=== PATIENT | female | born 1965 | race Caucasian/White ===

== ENCOUNTER → 2016-07-29 12:30 | Emergency (ER) | payer OTHER ==
[~2016-07-29 12:30] MED LIST: ASMANEX; ASPIRIN; COGENTIN PO; COMBIVENT INH14.7 GM; FORADIL12 MCG; INDERAL LA PO; LEVAQUIN PO; LIPITOR PO; LITHIUM; MULTI-VITAMIN1 TAB; NAPROXEN PO; NICOTINE T1 PATCH .2 TOP; PREDNISONE PO; PROTONIX; RHINOCORT AQUA8.6 GM; SEROQUEL; SYNTHROID PO; TEMAZEPAM PO; THORAZINE; THORAZINE PO; TOPAMAX; TYLENOL #3 PO; VALTREX PO; VICODIN 5/1 TAB 5/50 PO; ZOLOFT PO
== END | disposition left against medical advice (07) ==
LOC: CED 12:30
DX: Z53.21 Procedure and treatment not carried out due to patient leaving prior to being seen by health care provider (principal)

== ENCOUNTER 2016-08-12 21:01 | Emergency (ER) | payer OTHER | END 2016-08-12 21:05 | disposition left against medical advice (07) | LOC: CED 21:01 | DX: Z53.21 Procedure and treatment not carried out due to patient leaving prior to being seen by health care provider (principal) ==

== ENCOUNTER → 2016-09-12 23:00 | Emergency (ER) | payer OTHER | END | disposition left against medical advice (07) | LOC: CED 23:00 | DX: Z53.21 Procedure and treatment not carried out due to patient leaving prior to being seen by health care provider (principal) ==

== ENCOUNTER 2016-09-13 01:09 | Emergency (ER) | payer OTHER ==
--- NOTE | ~2016-09-13 | CR253 ---
[facility] A Service of [facility] & [facility] RADIOLOGY TEXT RESULTS PATIENT: JOANNA CUEVAS LOCATION: [facility] : 63 UNIT #: [id number] AGE: [address]: Jose Pulido MD SEX: F ORDER DR: [id number] [facility] [address] [place], [place] [address] [id number] E MR#: [id number] Acc #: [id number] NAME: JOANNA CUEVAS : 1965 SEX: F STUDY DATE/TIME: 09/13/2016 00:50 UNIT: [facility] ROOM: STUDY DESCRIPTION: CR Tibia and Fibula 2 Views Rt Attending Physician: Jose Pulido M.D. Referring Physician: Ryan Lang M.D. Ordering Physician: Jose Pulido M.D. Primary Care Physician: Ryan Lang M.D. MEDICAL IMAGING REPORT This report is preliminary unless electronic signature is present EXAM Right tib-fib 09/13/2016 at 00:50 INDICATION Patient had a fall 3 weeks ago. Persistent pain and numbness in the lateral right lower leg. FINDINGS AP and lateral views of the right lower leg were obtained. No acute fracture or malalignment is seen. The soft tissues are within normal limits. IMPRESSION Negative right lower leg. Dictated by... Cortes Orantes Jr., M.D. THIS IS AN ELECTRONICALLY VERIFIED REPORT Cortes Orantes Jr., M.D. at 09/16/2016 7:22 AM MARLENI/dorothy TD: 09/13/2016 06:55 JOB #: [id number] MEDICAL IMAGING REPORT Page 1 of 1 COPY
--- NOTE | ~2016-09-13 | CR170 ---
[facility] A Service of [facility] & [facility] RADIOLOGY TEXT RESULTS PATIENT: JOANNA CUEVAS LOCATION: [facility] : 63 UNIT #: [id number] AGE: [address]: Jose Pulido MD SEX: F ORDER DR: [id number] [facility] [address] [place], [place] [address] [id number] E MR#: [id number] Acc #: [id number] NAME: JOANNA CUEVAS : 1965 SEX: F STUDY DATE/TIME: 09/13/2016 00:48 UNIT: [facility] ROOM: STUDY DESCRIPTION: CR Knee 2 Views Rt Attending Physician: Jose Pulido M.D. Referring Physician: Ryan Lang M.D. Ordering Physician: Jose Pulido M.D. Primary Care Physician: Ryan Lang M.D. MEDICAL IMAGING REPORT This report is preliminary unless electronic signature is present EXAM Right knee 09/13 at 0048 hours INDICATIONS Pain and numbness in the knee after falling 3 weeks ago. FINDINGS 3 views of the right knee were obtained. There is osteoarthritis, predominately patellofemoral and medial compartments. No fracture or malalignment is seen. There is some benign cyst formation in the central tibial plateau. No joint effusion. IMPRESSION No acute findings. There is osteoarthritis in the patellofemoral and medial compartments. Dictated by... Cortes Orantes Jr., M.D. THIS IS AN ELECTRONICALLY VERIFIED REPORT Cortes Orantes Jr., M.D. at 09/16/2016 7:22 AM MARLENI/argenis TD: 09/13/2016 06:52 JOB #: [id number] MEDICAL IMAGING REPORT Page 1 of 1 COPY
== END 2016-09-13 01:38 | disposition home or self-care (01) ==
LOC: CFTX 01:09
DX: M17.11 Unilateral primary osteoarthritis, right knee (principal); I10 Essential (primary) hypertension; E78.5 Hyperlipidemia, unspecified; J44.9 Chronic obstructive pulmonary disease, unspecified; F25.0 Schizoaffective disorder, bipolar type; G43.909 Migraine, unspecified, not intractable, without status migrainosus; F17.210 Nicotine dependence, cigarettes, uncomplicated; Z98.51 Tubal ligation status; Z98.890 Other specified postprocedural states; Z86.19 Personal history of other infectious and parasitic diseases; Z88.1 Allergy status to other antibiotic agents; Z88.5 Allergy status to narcotic agent; Z88.8 Allergy status to other drugs, medicaments and biological substances; Z79.899 Other long term (current) drug therapy
CPT/HCPCS: 73560; 73590; 99284

== ENCOUNTER → 2016-09-25 | Outpatient (CLI) | payer OTHER ==
--- NOTE | ~2016-09-25 | MR104 ---
[facility] A Service of [facility] RADIOLOGY TEXT RESULTS PATIENT: JOANNA CUEVAS LOCATION: [facility] : 63 UNIT #: [id number] AGE: [address]: Maira Mcdonald SEX: F ORDER DR: [id number] [facility] [address] [place], [place] [address] [id number] O MR#: [id number] Acc #: [id number] NAME: JOANNA CUEVAS : 1965 SEX: F STUDY DATE/TIME: 09/25/2016 16:40 UNIT: [facility] ROOM: STUDY DESCRIPTION: MR Knee Wo Contrast Rt Attending Physician: Maira Mcdonald P.A.-C. Referring Physician: Maira Mcdonald P.A.-C. Ordering Physician: Maira Mcdonald P.A.-C. Primary Care Physician: Ryan Lang M.D. MRI CENTER REPORT This report is preliminary unless electronic signature is present. EXAM MRI of the right knee 09/25/2016 COMPARISON Right knee radiographs 09/13/2016. HISTORY Order states right lower leg pain and swelling. Positive anterior drawer. History sheet states patient fell approximately 1-2 months ago. Knee remains swollen and painful for 1-2 months diffusely. No knee surgery. Involuntary knee and foot jerking. History of thyroid radiation. Thyroidectomy. TECHNIQUE BLADE motion correction sequences were performed. Exam is moderately motion-degraded, nevertheless. FINDINGS There is a minimal effusion without a popliteal cyst. There is patella joselin of with slight patellar tilt. There is chondromalacia patella including grade 4 chondromalacia of the lateral facet and median ridge. There is cartilage attenuation of the femoral trochlea diffusely. Quadriceps and patellar tendons are intact. There is mild inflammation in the superolateral aspect of the infrapatellar fat pad thought to be related to fat pad impingement in the setting of patellofemoral malalignment/mal tracking. Cruciate ligaments are normal. The medial meniscus and MCL are normal. There is minimal medial STS. [facility] A Service of [facility] RADIOLOGY TEXT RESULTS PATIENT: JOANNA CUEVAS LOCATION: [facility] : 63 UNIT #: [id number] AGE: [address]: Maira Mcdonald SEX: F ORDER DR: compartment osteophyte formation. No definite high-grade medial compartment chondromalacia is noted. The lateral meniscus demonstrates no tear. Lateral collateral ligament complex and popliteus tendon are intact. There is a small focus of high-grade chondromalacia of the posterior weightbearing lateral femoral condyle. There is no marrow lesion, fracture, bone contusion, or loose body identified. IMPRESSION 1. Motion-degraded exam, despite motion correction BLADE sequences. 2. Patella joselin and high-grade chondromalacia patella detailed above. Moderate grade femoral trochlear chondromalacia. 3. Mild inflammation superolateral aspect infrapatellar fat pad is thought to be related to fat pad impingement in the setting of patellofemoral malalignment or maltracking. 4. Small effusion. 5. Cruciate ligaments and menisci are within normal limits. 6. Minimal lateral compartment chondromalacia detailed above. 7. No fracture, bone contusion, or loose body identified. Dictated by... Janel Arana M.D. THIS IS AN ELECTRONICALLY VERIFIED REPORT Janel Arana M.D. at 09/27/2016 8:41 AM Da TD: 09/26/2016 14:18 JOB #: [id number] MRI CENTER REPORT Page 1 of 1 COPY
== END | disposition home or self-care (01) ==
LOC: CMRI 15:20
DX: M79.89 Other specified soft tissue disorders (principal); M79.661 Pain in right lower leg; M22.41 Chondromalacia patellae, right knee; M25.462 Effusion, left knee; M70.51 Other bursitis of knee, right knee
CPT/HCPCS: 73721

== ENCOUNTER 2016-09-28 20:02 | Emergency (ER) | payer OTHER ==
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
== END 2016-09-28 22:31 | disposition home or self-care (01) ==
LOC: CFTX 20:02
DX: S16.1XXA Strain of muscle, fascia and tendon at neck level, initial encounter (principal); S39.012A Strain of muscle, fascia and tendon of lower back, initial encounter; S80.11XA Contusion of right lower leg, initial encounter; S00.93XA Contusion of unspecified part of head, initial encounter; I10 Essential (primary) hypertension; E78.5 Hyperlipidemia, unspecified; J44.9 Chronic obstructive pulmonary disease, unspecified; B19.20 Unspecified viral hepatitis C without hepatic coma; F31.9 Bipolar disorder, unspecified; F17.210 Nicotine dependence, cigarettes, uncomplicated; V49.40XA Driver injured in collision with unspecified motor vehicles in traffic accident, initial encounter
CPT/HCPCS: 70450; 72040; 72100; 73590; 96372; 99284; J1885

== ENCOUNTER 2016-09-29 23:28 | Emergency (ER) | payer OTHER ==
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
[2016-09-30 01:02] LABS: POC - CKMB 1.3 ng/mL (0.0-7.9); POC - TROPONIN <0.05 ng/mL (<=0.05)
== END 2016-09-30 02:15 | disposition home or self-care (01) ==
LOC: CED 23:28
PROVIDERS: Emergency Medicine
DX: S13.4XXA Sprain of ligaments of cervical spine, initial encounter (principal); K21.9 Gastro-esophageal reflux disease without esophagitis; F17.200 Nicotine dependence, unspecified, uncomplicated; J44.9 Chronic obstructive pulmonary disease, unspecified; X58.XXXA Exposure to other specified factors, initial encounter; Y92.89 Other specified places as the place of occurrence of the external cause
CPT/HCPCS: 72125; 73030; 82553; 84484; 87040; 99284

== ENCOUNTER 2016-10-06 20:41 | Emergency (ER) | payer OTHER ==
--- NOTE | ~2016-10-06 | CR142 ---
[facility] A Service of [facility] & [facility] RADIOLOGY TEXT RESULTS PATIENT: JOANNA CUEVAS LOCATION: [facility] : 63 UNIT #: [id number] AGE: [address]: Opal Adair APRN SEX: F ORDER DR: [id number] [facility] [address] [place], [place] [address] [id number] E MR#: [id number] Acc #: [id number] NAME: JOANNA CUEVAS : 1965 SEX: F STUDY DATE/TIME: 10/06/2016 21:12 UNIT: [facility] ROOM: STUDY DESCRIPTION: CR Hand Min 3 Views Rt Attending Physician: Opal Adair A.P.R.N. Ordering Physician: Opal Adair A.P.R.N. Primary Care Physician: Ryan Lang M.D. MEDICAL IMAGING REPORT This report is preliminary unless electronic signature is present EXAM Right hand series INDICATION Right hand pain and swelling for the past 2 days. PROCEDURE 3 views of the right hand. COMPARISON None FINDINGS No acute fracture. No dislocation. IMPRESSION No acute findings. Dictated by... Judah Mendoza M.D. THIS IS AN ELECTRONICALLY VERIFIED REPORT Judah Mendoza M.D. at 10/10/2016 7:06 AM Sloan TD: 10/07/2016 08:41 JOB #: [id number] MEDICAL IMAGING REPORT Page 1 of 1 COPY
== END 2016-10-06 22:06 | disposition home or self-care (01) ==
LOC: CFTX 20:41
DX: M79.641 Pain in right hand (principal); J44.9 Chronic obstructive pulmonary disease, unspecified; E78.5 Hyperlipidemia, unspecified; F17.210 Nicotine dependence, cigarettes, uncomplicated; Z88.0 Allergy status to penicillin; Z88.1 Allergy status to other antibiotic agents; Z88.5 Allergy status to narcotic agent
CPT/HCPCS: 29125; 73130; 99283

== ENCOUNTER 2016-11-03 21:28 | Emergency (ER) | payer OTHER | END 2016-11-04 01:16 | disposition left against medical advice (07) | LOC: CED 21:28 | DX: Z53.21 Procedure and treatment not carried out due to patient leaving prior to being seen by health care provider (principal) ==

== ENCOUNTER 2016-11-04 19:56 | Emergency (ER) | payer OTHER ==
[2016-11-04 20:59] LABS: URINE SOURCE CLEAN CATCH
[2016-11-04 21:04] LABS: URINE APPEARANCE CLEAR; URINE BILIRUBIN NEG (NEG); URINE BLOOD NEG (NEG); URINE COLOR YELLOW; URINE GLUCOSE NEG (NEG); URINE KETONE NEG (NEG); URINE LEUKOCYTE ESTERASE TRACE (NEG); URINE NITRATE NEG (NEG); URINE PH 6.5 (5-8); URINE PROTEIN NEG (NEG); URINE SPECIFIC GRAVITY 1.007 (1.003-1.035); URINE UROBILINOGEN 0.2 MG/DL (NEG)
[2016-11-04 21:08] LABS: URBCS1 AUWI 0-2 /[HPF] (0-2); URINE BACTERIA AUWI NEG (NEGATIVE); URINE SQUAMOUS EPITHELIAL CELL NONE SEEN /[HPF]; UWBCS1 AUWI 0-2 (0-5)
[2016-11-04 21:09] LABS: CULTURE INDICATED? NO
[2016-11-04 22:23] LABS: BASOPHIL# 0.1 X10e3 (0-0.3); BASOPHIL% 0.6 % (0-2.5); EOSINOPHIL# 0.2 X10e3 (0-0.7); EOSINOPHIL% 1.3 % (0.0-7.0); HEMATOCRIT 38.6 % (35.0-45.0); HEMOGLOBIN 12.1 gm/dL (12.0-16.0); LYMPHOCYTE# 2.1 X10e3 (1.0-3.5); LYMPHOCYTE% 14.1 % (17.0-45.0); MEAN CELL VOLUME 81.1 FL (83-96); MEAN CORPUSCULAR HEMOGLOBIN 25.3 PG (28-34); MEAN CORPUSCULAR HGB CONC 31.3 g/dL (30-36); MEAN PLATELET VOLUME 8.6 FL (6.5-11.5); MONOCYTE# 1.2 X10e3 (0-1.0); MONOCYTE% 8.5 % (3.0-12.0); NEUTROPHIL% 75.5 % (40-75); PLATELET COUNT 275 X10e3 (140-420); RED BLOOD COUNT 4.76 X10e (3.90-5.30); WHITE BLOOD COUNT 14.6 X10e3 (4.0-10.5)
[2016-11-04 22:25] LABS: DIFF IND NO
[2016-11-04 22:54] LABS: ALBUMIN SERUM 3.6 g/dL (3.5-5.0); BILIRUBIN, DIRECT 0.1 mg/dL (0.0-0.2); BILIRUBIN,INDIRECT 0.4 mg/dL (0.0-0.9); BILIRUBIN,TOTAL 0.5 mg/dL (0.2-2.0); BUN/CREATININE RATIO 4.54; CALCIUM SERUM 9.1 mg/dL (8.4-10.2); CREATININE SERUM 1.1 mg/dL (0.6-1.4); GLOM FILT RATE Estimated 57.7 mL/min (>60); POTASSIUM 3.2 mmol/L (3.5-5.1); PROTEIN TOTAL SERUM 6.9 g/dL (6.0-8.3)
== END 2016-11-04 23:38 | disposition home or self-care (01) ==
LOC: CFTX 19:56 → CED 19:56 → CFTX 21:30
PROVIDERS: Physician Assistant
DX: R30.0 Dysuria (principal); R10.84 Generalized abdominal pain; F17.210 Nicotine dependence, cigarettes, uncomplicated; Z98.51 Tubal ligation status; Z88.1 Allergy status to other antibiotic agents; Z88.5 Allergy status to narcotic agent; Z88.8 Allergy status to other drugs, medicaments and biological substances
CPT/HCPCS: 36415; 80048; 80076; 81003; 83690; 85025; 96361; 96374; 99284; J2405

== ENCOUNTER 2016-11-07 16:58 | Emergency (ER) | payer OTHER ==
[2016-11-07 17:56] LABS: BASOPHIL# 0.1 X10e3 (0-0.3); BASOPHIL% 0.7 % (0-2.5); DIFF IND NO; EOSINOPHIL# 0.1 X10e3 (0-0.7); EOSINOPHIL% 0.6 % (0.0-7.0); HEMATOCRIT 40.9 % (35.0-45.0); LYMPHOCYTE% 15.7 % (17.0-45.0); MEAN CELL VOLUME 81.1 FL (83-96); MEAN CORPUSCULAR HEMOGLOBIN 25.7 PG (28-34); MEAN CORPUSCULAR HGB CONC 31.7 g/dL (30-36); MEAN PLATELET VOLUME 8.6 FL (6.5-11.5); MONOCYTE# 0.9 X10e3 (0-1.0); MONOCYTE% 6.7 % (3.0-12.0); NEUTROPHIL# 9.8 X10e3 (1.5-7.1); NEUTROPHIL% 76.3 % (40-75); PLATELET COUNT 279 X10e3 (140-420); RED BLOOD COUNT 5.05 X10e (3.90-5.30); RED CELL DISTRIBUTION WIDTH 21.4 % (11.0-15.5); WHITE BLOOD COUNT 12.8 X10e3 (4.0-10.5)
[2016-11-07 18:27] LABS: ALKALINE PHOSPHATASE 74 U/L (32-92); ALT (SGPT) 14 U/L (10-40); AST (SGOT) 9 U/L (10-42); BILIRUBIN, DIRECT <0.1 mg/dL (0.0-0.2); BILIRUBIN,INDIRECT 0.2 mg/dL (0.0-0.9); BILIRUBIN,TOTAL 0.3 mg/dL (0.2-2.0); BLOOD UREA NITROGEN 10 mg/dL (9-23); BUN/CREATININE RATIO 8.33; CALCIUM SERUM 9.5 mg/dL (8.4-10.2); CARBON DIOXIDE 22 mmol/L (22-31); CHLORIDE 105 mmol/L (100-111); CREATININE SERUM 1.2 mg/dL (0.6-1.4); GLOM FILT RATE Estimated 51.9 mL/min (>60); GLUCOSE FASTING 105 mg/dL (70-110); LIPASE 16 U/L (22-51); POTASSIUM 3.4 mmol/L (3.5-5.1); PROTEIN TOTAL SERUM 7.4 g/dL (6.0-8.3); SODIUM 138 mmol/L (135-145)
== END 2016-11-07 19:20 | disposition home or self-care (01) ==
LOC: CED 16:58
DX: R19.7 Diarrhea, unspecified (principal); R10.9 Unspecified abdominal pain; K21.9 Gastro-esophageal reflux disease without esophagitis; B19.20 Unspecified viral hepatitis C without hepatic coma; J44.9 Chronic obstructive pulmonary disease, unspecified; F31.9 Bipolar disorder, unspecified; F17.210 Nicotine dependence, cigarettes, uncomplicated; Z98.51 Tubal ligation status; Z88.1 Allergy status to other antibiotic agents; Z88.5 Allergy status to narcotic agent; Z88.8 Allergy status to other drugs, medicaments and biological substances
CPT/HCPCS: 80048; 80076; 83690; 85025; 99284; J2270; J2405

== ENCOUNTER 2016-11-17 16:36 | Emergency (ER) | payer OTHER | END 2016-11-17 18:15 | disposition left against medical advice (07) | LOC: CED 16:36 | DX: Z53.21 Procedure and treatment not carried out due to patient leaving prior to being seen by health care provider (principal) ==

== ENCOUNTER 2016-12-01 23:10 | Emergency (ER) | payer OTHER ==
--- NOTE | ~2016-12-01 | CT71 ---
[facility] A Service [facility] RADIOLOGY TEXT RESULTS PATIENT: JOANNA CUEVAS LOCATION: [facility] : 63 UNIT #: [id number] AGE: [address]: Chris Tavera MD SEX: F ORDER DR: [id number] [address] [place], [place] [address] [id number] E MR#: [id number] Acc #: [id number] NAME: JOANNA CUEVAS : 1965 SEX: F STUDY DATE/TIME: 12/01/2016 23:58 UNIT: [facility] ROOM: STUDY DESCRIPTION: CT Head Wo Contrast Attending Physician: Chris Tavera M.D. Ordering Physician: Chris Tavera M.D. Primary Care Physician: No Primary Care Physician MEDICAL IMAGING REPORT This report is preliminary unless electronic signature is present EXAM CT head. INDICATIONS Stroke-like symptoms. Confusion. Manic. Mental status change. TECHNIQUE CT of the head without contrast. COMPARISON CT head dated 09/28/2016. TECHNIQUE Axial noncontrast images were obtained from the skull base to the vertex. This CT exam was performed with one or more of the following radiation dose reduction techniques: automatic exposure control, adjustment of mA and/or kV according to patient size, and iterative reconstruction. FINDINGS Ventricular size and configuration are normal. There is no evidence of acute infarct or hemorrhage. There are no extraaxial fluid collections. No mass lesion or mass effect is seen. There are no skull fractures. There is a partially exophytic area of hyperostosis off the medial left temporal bone measuring up to 2.1 cm. This has benign features and is unchanged from the prior CT. IMPRESSION Normal noncontrast head CT. [facility] A Service [facility] RADIOLOGY TEXT RESULTS PATIENT: JOANNA CUEVAS LOCATION: [facility] : 63 UNIT #: [id number] AGE: [address]: Chris Tavera MD SEX: F ORDER DR: Dictated by... John P. Eduarda, M.D. THIS IS AN ELECTRONICALLY VERIFIED REPORT John Lerner M.D. at 12/02/2016 10:29 PM KIM/angélica TD: 12/02/2016 11:23 JOB #: [id number] MEDICAL IMAGING REPORT Page 1 of 1 COPY
--- NOTE | ~2016-12-01 | EKG ---
PATIENT: JOANNA CUEVAS UNIT #: [id number] Ventricular Rate: 83 BPM Atrial Rate: 83 BPM P-R Interval: 150 ms QRS Duration: 80 ms Q-T Interval: 404 ms QTC Calculation(Bezet): 474 ms P [place]: 75 degrees Calculated R [place]: 65 degrees Calculated T [place]: 81 degrees Diagnosis Line: Normal sinus rhythm Diagnosis Line: Low voltage QRS Diagnosis Line: Borderline ECG Diagnosis Line: When compared with ECG of 21-AUG-2014 11:49, Diagnosis Line: Nonspecific T wave abnormality now evident in Diagnosis Line: Anterior leads Diagnosis Line: Confirmed by ISI HOLLY MD ([id number]) on Diagnosis Line: 12/02/2016 11:07:50 AM INTERPRETING MD: AVNI CANNON
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
[2016-12-01 23:43] LABS: URINE SOURCE CLEAN CATCH
[2016-12-01 23:48] LABS: BASOPHIL# 0.1 X10e3 (0-0.3); BASOPHIL% 1.1 % (0-2.5); DIFF IND YES; EOSINOPHIL# 0.1 X10e3 (0-0.7); EOSINOPHIL% 1.4 % (0.0-7.0); HEMATOCRIT 40.6 % (35.0-45.0); HEMOGLOBIN 13.1 gm/dL (12.0-16.0); LYMPHOCYTE# 2.6 X10e3 (1.0-3.5); LYMPHOCYTE% 28.4 % (17.0-45.0); MEAN CELL VOLUME 84.8 FL (83-96); MEAN CORPUSCULAR HEMOGLOBIN 27.4 PG (28-34); MEAN CORPUSCULAR HGB CONC 32.3 g/dL (30-36); MEAN PLATELET VOLUME 7.8 FL (6.5-11.5); MONOCYTE# 0.9 X10e3 (0-1.0); MONOCYTE% 9.7 % (3.0-12.0); NEUTROPHIL# 5.5 X10e3 (1.5-7.1); NEUTROPHIL% 59.4 % (40-75); PLATELET COUNT 189 X10e3 (140-420); RED BLOOD COUNT 4.79 X10e (3.90-5.30); RED CELL DISTRIBUTION WIDTH 22.5 % (11.0-15.5); WHITE BLOOD COUNT 9.3 X10e3 (4.0-10.5)
[2016-12-01 23:51] LABS: URINE APPEARANCE CLEAR; URINE BILIRUBIN NEG (NEG); URINE BLOOD NEG (NEG); URINE COLOR YELLOW; URINE GLUCOSE NEG (NEG); URINE KETONE NEG (NEG); URINE LEUKOCYTE ESTERASE 3+ (NEG); URINE NITRATE POS (NEG); URINE PH 5.5 (5-8); URINE PROTEIN NEG (NEG); URINE SPECIFIC GRAVITY 1.008 (1.003-1.035); URINE UROBILINOGEN 0.2 MG/DL (NEG)
[2016-12-01 23:54] LABS: CULTURE INDICATED? YES; URBCS1 AUWI 0-2 /[HPF] (0-2); URINE BACTERIA AUWI 4+ (NEGATIVE); URINE SQUAMOUS EPITHELIAL CELL NONE SEEN /[HPF]; UWBCS1 AUWI 50-100 (0-5)
[2016-12-02] LABS: PARTIAL THROMBOPLASTIN TIME 27.5 SECONDS (23.5-31.3); PROTHROMBIN TIME (PATIENT) 10.5 SECONDS (10.0-11.7)
[2016-12-02 00:06] LABS: ACANTHOCYTES PRESENT; ANISOCYTOSIS MOD; PLATELET ESTIMATE NORMAL (NORMAL); POIKILOCYTOSIS SL; STOMATOCYTE PRESENT
[2016-12-02 00:06] LABS: AMPHETAMINE NEG (NEG); BARBITURATES NEG (NEG); BENZODIAZEPINES NEG (NEG); COCAINE NEG (NEG); MARIJUANA NEG (NEG); OPIATES NEG (NEG); TRICYCLIC ANTIDEPRESSANTS POS (NEG); U METHADONE NEG (NEG)
[2016-12-02 00:10] LABS: ALBUMIN SERUM 3.9 g/dL (3.5-5.0); BILIRUBIN,TOTAL 0.8 mg/dL (0.2-2.0); BUN/CREATININE RATIO 5.71; CALCIUM SERUM 8.7 mg/dL (8.4-10.2); CREATININE SERUM 1.4 mg/dL (0.6-1.4); GLOM FILT RATE Estimated 43.1 mL/min (>60); PROTEIN TOTAL SERUM 6.8 g/dL (6.0-8.3)
[2016-12-02 00:26] LABS: BILIRUBIN, DIRECT 0.1 mg/dL (0.0-0.2); BILIRUBIN,INDIRECT 0.7 mg/dL (0.0-0.9); POTASSIUM 2.9 mmol/L (3.5-5.1)
== END 2016-12-02 01:30 | disposition home or self-care (01) ==
LOC: CED 23:10
PROVIDERS: Emergency Medicine
DX: J18.9 Pneumonia, unspecified organism (principal); N39.0 Urinary tract infection, site not specified; E87.6 Hypokalemia; J44.9 Chronic obstructive pulmonary disease, unspecified; B19.20 Unspecified viral hepatitis C without hepatic coma; F31.9 Bipolar disorder, unspecified; F17.200 Nicotine dependence, unspecified, uncomplicated
CPT/HCPCS: 36415; 70450; 71010; 80048; 80076; 80307; 81003; 82947; 85025; 85610; 85730; 87086; 87088; 87186; 93005; 96365; 96367; 99285; G0480; J0456; J0696

== ENCOUNTER 2016-12-06 10:06 | Emergency (ER) | payer OTHER ==
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
[2016-12-06 11:07] LABS: BASOPHIL# 0.1 X10e3 (0-0.3); BASOPHIL% 0.7 % (0-2.5); DIFF IND YES; EOSINOPHIL# 0.1 X10e3 (0-0.7); EOSINOPHIL% 0.9 % (0.0-7.0); HEMATOCRIT 38.6 % (35.0-45.0); HEMOGLOBIN 12.3 gm/dL (12.0-16.0); LYMPHOCYTE# 1.7 X10e3 (1.0-3.5); LYMPHOCYTE% 11.6 % (17.0-45.0); MEAN CELL VOLUME 85.4 FL (83-96); MEAN CORPUSCULAR HEMOGLOBIN 27.3 PG (28-34); MEAN PLATELET VOLUME 7.9 FL (6.5-11.5); MONOCYTE% 6.6 % (3.0-12.0); NEUTROPHIL# 11.7 X10e3 (1.5-7.1); NEUTROPHIL% 80.2 % (40-75); PLATELET COUNT 187 X10e3 (140-420); RED BLOOD COUNT 4.52 X10e (3.90-5.30); RED CELL DISTRIBUTION WIDTH 22.3 % (11.0-15.5); WHITE BLOOD COUNT 14.6 X10e3 (4.0-10.5)
[2016-12-06 11:31] LABS: ALBUMIN SERUM 3.7 g/dL (3.5-5.0); ALKALINE PHOSPHATASE 60 U/L (32-92); ALT (SGPT) 19 U/L (10-40); ANISOCYTOSIS MOD; AST (SGOT) 12 U/L (10-42); BILIRUBIN,TOTAL 0.5 mg/dL (0.2-2.0); BLOOD UREA NITROGEN 7 mg/dL (9-23); CALCIUM SERUM 9.3 mg/dL (8.4-10.2); CARBON DIOXIDE 24 mmol/L (22-31); CHLORIDE 110 mmol/L (100-111); GLOM FILT RATE Estimated 64.8 mL/min (>60); GLUCOSE FASTING 91 mg/dL (70-110); LIPASE 19 U/L (22-51); PLATELET ESTIMATE NORMAL (NORMAL); POTASSIUM 3.5 mmol/L (3.5-5.1); PROTEIN TOTAL SERUM 6.5 g/dL (6.0-8.3); SODIUM 138 mmol/L (135-145)
[2016-12-06 11:32] LABS: HYPOCHROMIA SL; SCHISTOCYTES PRESENT
[2016-12-06 11:39] LABS: BILIRUBIN, DIRECT <0.1 mg/dL (0.0-0.2); BILIRUBIN,INDIRECT 0.4 mg/dL (0.0-0.9)
[2016-12-06 11:47] LABS: URINE SOURCE CLEAN CATCH
[2016-12-06 11:51] LABS: URINE APPEARANCE CLEAR; URINE BILIRUBIN NEG (NEG); URINE BLOOD NEG (NEG); URINE COLOR YELLOW; URINE GLUCOSE NEG (NEG); URINE KETONE NEG (NEG); URINE LEUKOCYTE ESTERASE NEG (NEG); URINE NITRATE NEG (NEG); URINE PH 6.5 (5-8); URINE PROTEIN NEG (NEG); URINE SPECIFIC GRAVITY 1.008 (1.003-1.035); URINE UROBILINOGEN 0.2 MG/DL (NEG)
[2016-12-06 11:54] LABS: CULTURE INDICATED? NO
== END 2016-12-06 12:27 | disposition home or self-care (01) ==
LOC: CED 10:06
PROVIDERS: Emergency Medicine
DX: R10.84 Generalized abdominal pain (principal); R19.7 Diarrhea, unspecified; J44.9 Chronic obstructive pulmonary disease, unspecified; G43.909 Migraine, unspecified, not intractable, without status migrainosus; F31.9 Bipolar disorder, unspecified; F17.200 Nicotine dependence, unspecified, uncomplicated; Z88.5 Allergy status to narcotic agent; Z88.8 Allergy status to other drugs, medicaments and biological substances; Z88.1 Allergy status to other antibiotic agents
CPT/HCPCS: 36415; 74022; 80048; 80076; 81003; 83690; 85025; 96365; 96372; 96375; 99284; J0500; J0696; J2405

== ENCOUNTER 2016-12-07 17:17 | Emergency (ER) | payer OTHER | END 2016-12-07 19:40 | disposition home or self-care (01) | LOC: CFTX 17:17 → CED 17:17 → CFTX 19:27 | DX: J06.9 Acute upper respiratory infection, unspecified (principal); Z91.14 Patient's other noncompliance with medication regimen; F17.210 Nicotine dependence, cigarettes, uncomplicated; J44.9 Chronic obstructive pulmonary disease, unspecified; K21.9 Gastro-esophageal reflux disease without esophagitis; Z86.19 Personal history of other infectious and parasitic diseases; G43.909 Migraine, unspecified, not intractable, without status migrainosus; Z88.5 Allergy status to narcotic agent; Z88.8 Allergy status to other drugs, medicaments and biological substances | CPT/HCPCS: 99283 ==

== ENCOUNTER 2016-12-13 14:41 | Emergency (ER) | payer OTHER ==
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
== END 2016-12-13 16:25 | disposition home or self-care (01) ==
LOC: CFTX 14:41 → CED 14:41 → CFTX 15:41
DX: M25.552 Pain in left hip (principal); J44.9 Chronic obstructive pulmonary disease, unspecified; K21.9 Gastro-esophageal reflux disease without esophagitis; F31.9 Bipolar disorder, unspecified; F17.210 Nicotine dependence, cigarettes, uncomplicated; Z88.8 Allergy status to other drugs, medicaments and biological substances; Z88.5 Allergy status to narcotic agent; Z88.1 Allergy status to other antibiotic agents
CPT/HCPCS: 73502; 99283

== ENCOUNTER 2017-01-17 15:49 | Emergency (ER) | payer BC, OTHER ==
[~2017-01-17] VITALS: Ht 160 cm; Wt 63.5 kg
--- NOTE | ~2017-01-17 | CR229 ---
[facility] A Service of [facility] RADIOLOGY TEXT RESULTS PATIENT: JOANNA CUEVAS LOCATION: [facility] : 63 UNIT #: [id number] AGE: [address]: Chris Bunch MD SEX: F ORDER DR: [id number] [facility] [address] [place], [place] [address] [id number] E MR#: [id number] Acc #: [id number] NAME: JOANNA CUEVAS : 1965 SEX: F STUDY DATE/TIME: 01/17/2017 16:25 UNIT: [facility] ROOM: STUDY DESCRIPTION: CR Shoulder Min 2 View Lt Attending Physician: Judah Bunch M.D. Ordering Physician: Ed Heath Betancourt M.D. Primary Care Physician: Ryan Lang M.D. MEDICAL IMAGING REPORT This report is preliminary unless electronic signature is present EXAM 3 views left shoulder. DATE 01/17/2017 HISTORY 51-year-old female with left shoulder pain, fell. Symptoms began 01/17/2017. COMPARISON Left shoulder radiographs 09/29/2016 FINDINGS No fracture joint dislocation or significant osteoarthritic change. Old left rib fracture. Imaged left lung apex is clear. IMPRESSION 1. No acute left shoulder findings. 2. Old left rib fractures. Dictated by... Yamilet Ortega M.D. THIS IS AN ELECTRONICALLY VERIFIED REPORT Yamilet Ortega M.D. at 01/18/2017 1:54 PM LLAl/rnr TD: 01/18/2017 04:37 JOB #: [id number] MEDICAL IMAGING REPORT Page 1 of 1 COPY
--- NOTE | ~2017-01-17 | CR72 ---
[facility] A Service of [facility] RADIOLOGY TEXT RESULTS PATIENT: JOANNA CUEVAS LOCATION: [facility] : 63 UNIT #: [id number] AGE: [address]: Chris Bunch MD SEX: F ORDER DR: [id number] [facility] [address] [place], [place] [address] [id number] E MR#: [id number] Acc #: [id number] NAME: JOANNA CUEVAS : 1965 SEX: F STUDY DATE/TIME: 01/17/2017 16:24 UNIT: [facility] ROOM: STUDY DESCRIPTION: CR Chest Single View Portable Attending Physician: Judah Bunch M.D. Ordering Physician: Ed Heath Betancourt M.D. Primary Care Physician: Ryan Lang M.D. MEDICAL IMAGING REPORT This report is preliminary unless electronic signature is present EXAM AP portable chest DATE 01/17/2017 HISTORY Left side chest pain, cough, congestion, and shortness of breath since 01/17/2017. Fell. History of thyroid cancer. COPD. Asthma. Bronchitis. 36-year smoking history. COMPARISON AP portable chest 12/01/2016 FINDINGS Multiple old left rib fractures are redemonstrated, but no new rib fractures are identified. There is scarring or fluid in the left costophrenic angle with adjacent linear scarring, similar to prior exam. Advanced emphysematous changes are present with hyperinflation and bullous change in lung apices. Heart size is borderline enlarged but stable. IMPRESSION 1. Small left basilar pleural effusion versus pleural scarring and adjacent left basilar linear scarring, unchanged from 12/01/2016. 2. Severe emphysema with bullous changes in the upper lobes. 3. Multiple old left rib fractures. No acute osseous abnormalities are demonstrated. 4. No visible pneumothorax. Dictated by... Yamilet Ortega M.D. THIS IS AN ELECTRONICALLY VERIFIED REPORT [facility] A Service of [facility] & [facility] RADIOLOGY TEXT RESULTS PATIENT: JOANNA CUEVAS LOCATION: [facility] : 63 UNIT #: [id number] AGE: [address]: Chris Bunch MD SEX: F ORDER DR: Yamilet Ortega M.D. at 01/18/2017 1:54 PM REBEKAH/stuart TD: 01/18/2017 04:34 JOB #: [id number] MEDICAL IMAGING REPORT Page 1 of 1 COPY
== END 2017-01-17 18:26 | disposition home or self-care (01) ==
LOC: CED 15:49
DX: S40.012A Contusion of left shoulder, initial encounter (principal); F17.210 Nicotine dependence, cigarettes, uncomplicated; B19.20 Unspecified viral hepatitis C without hepatic coma; J44.9 Chronic obstructive pulmonary disease, unspecified; K21.9 Gastro-esophageal reflux disease without esophagitis; Z23 Encounter for immunization; W01.0XXA Fall on same level from slipping, tripping and stumbling without subsequent striking against object, initial encounter; Y92.009 Unspecified place in unspecified non-institutional (private) residence as the place of occurrence of the external cause
CPT/HCPCS: 71010; 73030; 90471; 90715; 99283

== ENCOUNTER 2017-01-23 19:15 | Emergency (ER) | payer OTHER ==
[~2017-01-23] VITALS: Ht 160 cm; Wt 63.5 kg
== END 2017-01-23 21:30 | disposition left against medical advice (07) ==
LOC: CED 19:15
DX: Z53.21 Procedure and treatment not carried out due to patient leaving prior to being seen by health care provider (principal)

== ENCOUNTER 2017-02-08 21:52 | Emergency (ER) | payer OTHER ==
[~2017-02-08] VITALS: Ht 160 cm; Wt 64.0 kg
== END 2017-02-08 23:00 | disposition home or self-care (01) ==
LOC: CED 21:52
DX: M54.31 Sciatica, right side (principal); F31.9 Bipolar disorder, unspecified; Z88.0 Allergy status to penicillin; Z88.5 Allergy status to narcotic agent; Z88.6 Allergy status to analgesic agent; Z88.1 Allergy status to other antibiotic agents; Z88.8 Allergy status to other drugs, medicaments and biological substances
CPT/HCPCS: 99283